=== PATIENT | male | born 1945 | race Caucasian/White ===

== ENCOUNTER 2018-03-15 12:25 | Emergency (ER) | payer MEDICARE ==
[2018-03-15] MEDS ORDERED: DEXAMETHASONE SOD PHOSPHATE 10MG/ML 1ML VIAL ONE (15:18)
[2018-03-15] MEDS ORDERED: TRAMADOL HCL 50 MG TABLET ONE (15:18)
== END 2018-03-15 15:37 | disposition home or self-care (01) ==
LOC: EDH 12:25
DX: M54.5 Low back pain (principal); I10 Essential (primary) hypertension; I25.10 Atherosclerotic heart disease of native coronary artery without angina pectoris; E78.5 Hyperlipidemia, unspecified; Z86.73 Personal history of transient ischemic attack (TIA), and cerebral infarction without residual deficits; Z98.890 Other specified postprocedural states; Z90.49 Acquired absence of other specified parts of digestive tract; Z85.46 Personal history of malignant neoplasm of prostate; Z87.891 Personal history of nicotine dependence
CPT/HCPCS: 72192; 96372; 99284; J1100

== ENCOUNTER → 2018-03-20 | Outpatient (CLI) | payer MEDICARE, OTHER | END | disposition home or self-care (01) | LOC: RAH 11:49 | PROVIDERS: ATTEND Nurse Practitioner Family | DX: M47.816 Spondylosis without myelopathy or radiculopathy, lumbar region (principal); Z90.49 Acquired absence of other specified parts of digestive tract | CPT/HCPCS: 72100 ==